=== PATIENT | female | born 1990 | race Caucasian/White ===

== ENCOUNTER 2019-11-14 05:59 | Day surgery (SDC) | payer BC ==
[2019-11-14] MEDS ORDERED: cefTRIAXone(*) 2 GM ADDV.VIAL IVPB ONE (06:35)
[2019-11-14] MEDS ORDERED: Midazolam* 1 MG/ML 2 ML VIAL (2 MG) ONE (06:58)
[2019-11-14] MEDS ORDERED: fentaNYL* 50 MCG/ML 2 ML VIAL (100 MCG VIAL) ONE (06:58)
[2019-11-14] MEDS ORDERED: Naloxone* 0.4 MG/ML 1 ML VIAL IV PRN (07:14)
[2019-11-14] MEDS ORDERED: HYDROmorphone INJ1* 1 MG/ML SYRINGE IV PRN (07:14)
[2019-11-14] MEDS ORDERED: Ketorolac INJ* 30 MG/ML 1 ML VIAL IV PRN (07:14)
[2019-11-14] MEDS ORDERED: Buffered Lidocaine 1% SYRIN* 1 ML/SYRINGE INTRADERM ONE (07:15)
--- NOTE | 2019-11-14 07:24 | HP ---
ADMITTING HISTORY AND PHYSICAL: DATE OF ADMISSION: 11/14/19 ADMITTING DIAGNOSES: 1. Calculus, right proximal ureter. 2. Right hydronephrosis. PLANNED PROCEDURE: Right ureteral stent insertion (to be followed in the near future by lithotripsy). SURGEON: Dr. Putnam. HISTORY OF PRESENT ILLNESS: Michelle Coley is a 29-year-old lady with a history of recurrent renal calculi. She has had episodic right flank pain and nausea off and on for over a month now and was initially evaluated in [place] and had imaging which revealed a 7-mm calculus. She continues to have pain and an ultrasound done in my office revealed an approximately 7-mm calculus in the proximal right ureter with right hydronephrosis and significantly diminished right ureteral jets. She is being brought in for urgent right stent insertion to be followed at some point in the near future by lithotripsy. PAST MEDICAL HISTORY: Significant for renal calculi. PAST SURGICAL HISTORY: Significant for bilateral knee ACL repair. MEDICATIONS ON ADMISSION: 1. Ibuprofen p.r.n. 2. Flomax 0.4 mg, which I instructed her to stop. ALLERGIES: No known drug allergies. FAMILY HISTORY: She has a strong family history on her father's side, father and father's brothers all have had kidney stones. SOCIAL HISTORY: Smoking history: She is a nonsmoker. REVIEW OF SYSTEMS: She is otherwise in excellent health. There is no history of diabetes mellitus or any other major systemic illness. PHYSICAL EXAMINATION GENERAL: Reveals a pleasant, healthy-appearing young lady. VITAL SIGNS: Blood pressure is 118/80, pulse 83 per minute and regular, temperature 98.3, oxygen saturation 98% on room air. LUNGS: Clear bilaterally. CARDIOVASCULAR: Regular rate and rhythm. S1, S2. ABDOMEN: Soft with mild right flank tenderness. IMPRESSION AND PLAN: I reviewed the ultrasound and had a detailed discussion with Michelle regarding the management option. Since the pain has been going on for over a month now, she would like to proceed with right stent insertion to be followed at some point in the near future by shockwave lithotripsy. [id number]/[facility] #: [id number] MTDD
[2019-11-14] MEDS ORDERED: Lactated Ringers 1000 ML Bag* 1,000 ML IV SCH (08:00)
[2019-11-14] MEDS ORDERED: Propofol* 500 MG/50 ML BTL ONE (08:09)
[2019-11-14] MEDS ORDERED: Ondansetron INJ* 2 MG/ML VIAL ONE (08:09)
[2019-11-14] MEDS ORDERED: Dexamethasone IV* 4 MG/ML 1 ML (4 MG) ONE (08:09)
[2019-11-14] MEDS ORDERED: Ketorolac INJ* 30 MG/ML 1 ML VIAL ONE (08:43)
[2019-11-14] MEDS ORDERED: HYDROmorphone INJ1* 1 MG/ML SYRINGE ONE (09:54)
[2019-11-14 10:29] VITALS: BP 122/77
--- NOTE | 2019-11-14 12:31 | OP ---
OPERATIVE REPORT: DATE OF OPERATION: 11/14/19 DATE OF : 89 SURGEON: Joni Putnam MD. ANESTHESIOLOGIST: Dr. Adair. ANESTHESIA: General. PRE-OP DIAGNOSES: 1. Right hydronephrosis. 2. Obstructing calculus, right proximal ureter. POST-OP DIAGNOSES: 1. Right hydronephrosis. 2. Obstructing calculus, right proximal ureter. OPERATIVE PROCEDURE: Cystoscopy, right retrograde pyelogram, right ureteroscopy and laser lithotrips y, removal of ureteral calculus fragments, and right stent insertion. COMPLICATIONS: None. STENT USED: 8-Macedonian stent, right ureter. OPERATIVE FINDINGS: Fairly large 9 to 10 mm calculus right proximal ureter just below ureteropelvic junction with right hydronephrosis. INDICATIONS: Michelle Coley is a 29-year-old young lady who has had episodic right flank pain fo r several weeks now secondary to an obstructing calculus in the right proximal ureter. DESCRIPTION OF PROCEDURE: After induction of general anesthesia, the patient was placed in dorsal li thotomy position. Sequential compression devices were in place and functioning. Initial evaluation revealed a normal-appearing bladder. A right retrograde pyelogram revealed right hydronephrosis with proximal hydroureter and the calculus could be seen on fluoroscopy a few centimeters below the urete ropelvic junction. A 6-Macedonian semi-rigid ureteroscope was introduced and advanced under direct visio n in the proximal right right ureter. A fairly large 9 to 10 mm calculus was noted to be impacted. Using a 550 micron Holmium laser, this was successfully broken up into multiple fragments and all of the larger fragments were retrieved. An 8-Macedonian stent was introduced and positioned under fluorosco py with good proximal and distal positioning obtained. The bladder was emptied. The patient tolerat ed the procedure satisfactorily and was transferred back to the recovery area in stable condition. [id number]/[facility] #: [id number]
== END 2019-11-14 10:30 | disposition home or self-care (01) ==
LOC: OR 05:59
PROVIDERS: ATTEND Urology
DX: N13.2 Hydronephrosis with renal and ureteral calculous obstruction (principal); Z87.442 Personal history of urinary calculi; R01.1 Cardiac murmur, unspecified
CPT/HCPCS: 74018; 74420; 81025; 82365; 88300; C1876; J0696; J1100; J1170; J1885; J2250; J2405; J2704; J3010